=== PATIENT | male | born 1960 | race Caucasian/White ===

== ENCOUNTER 2016-10-31 18:14 | Inpatient (IN) | payer MEDICARE ==
[~2016-10-31] VITALS: Ht 167.6 cm; Wt 75.0 kg
[2016-10-31 18:22] VITALS: BP 181/100; PULSE 93; RESP 20; TEMP 98.5; O2SAT 100
[2016-10-31] MEDS ORDERED: SODIUM CHLOR 0.9% 1000 ML INJ 1,000 ML IV ONE ×2 (18:24→22:15)
--- NOTE | 2016-10-31 18:24 | PD ---
HPI Chief Complaint: Seizure Time Seen by Provider: 18:23 Travel History International Travel<30 days: No Contact w/Intl Traveler<30days: No Traveled to known affect area: No History of Present Illness HPI 56-year-old male with history of alcohol dependency, previous seizures assumed secondary to alcoholism remote CVA, hypertension, hypercholesterolemia, presents to the emergency department for evaluation by [facility]. The patient's brother accompanies him and set the patient has not been acting right today. He states that he had 2 seizures. He states he has been drinking beer for the last 3 days and has not eaten anything. Today he has vomited a few times in addition to the seizures. Patient states that he has not felt well recently but cannot specify a time frame or why he does not feel well. He denies pain. He has not been recently ill with fevers or chills. Denies illicit drug use. Has no other symptoms to report. PFSH Past Medical History Hypertension: Yes Social History Alcohol Use: Yes Tobacco Use: Yes Substance Use: No Allergies-Medications (Allergen,Severity, Reaction): Coded Allergies: No Known Allergies (Unverified , 10/31/16) Reported Meds & Prescriptions Reported Meds & Active Scripts Active Reported Aspir-81 (Aspirin) 81 Mg Tabdr Losartan (Losartan Potassium) 25 Mg Tab 12.5 Mg PO DAILY Review of Systems ROS Limitations: Intoxication Except as stated in HPI: all other systems reviewed are Neg Physical Exam Exam Limitations: Intoxication Narrative GENERAL: Unkempt male patient, lying in bed, in no acute distress SKIN: Warm and dry. HEAD: Atraumatic. Normocephalic. EYES: Pupils equal and round. No scleral icterus. No injection or drainage. ENT: No nasal bleeding or discharge. Mucous membranes pink and moist. NECK: Trachea midline. No JVD. CARDIOVASCULAR: Elevated rate and rhythm. No murmur appreciated. RESPIRATORY: No accessory muscle use. Coarse with inspiratory and expiratory wheeze to auscultation. Breath sounds equal bilaterally. GASTROINTESTINAL: Abdomen soft, non-tender, nondistended. Hepatic and splenic margins not palpable. MUSCULOSKELETAL: No obvious deformities. No clubbing. No cyanosis. No edema. NEUROLOGICAL: Awake and alert. Patient is oriented to time place and self. He has slowed slightly slurred speech. PSYCHIATRIC: Flat affect, bizarre mood. Data Data Last Documented VS Vital Signs Date Time Temp Pulse Resp B/P Pulse Ox O2 Delivery O2 Flow Rate FiO2 10/31/16 19:42 91 18 162/93 100 Room Air 10/31/16 18:22 98.5 Orders Electrocardiogram (10/31/16 18:24) Complete Blood Count With Diff (10/31/16 18:24) Comprehensive Metabolic Panel (10/31/16 18:24) Ckmb (Isoenzyme) Profile (10/31/16 18:24) Troponin I (10/31/16 18:24) Act Partial Throm Time (Ptt) (10/31/16 18:24) Prothrombin Time / Inr (Pt) (10/31/16 18:24) Urinalysis - C+S If Indicated (10/31/16 18:24) Chest, Single Ap (10/31/16 18:24) Ct Brain W/O Iv Contrast(Rout) (10/31/16 18:24) Ecg Monitoring (10/31/16 18:24) Iv Access Insert/Monitor (10/31/16 18:24) Oximetry (10/31/16 18:24) Ondansetron Inj (Zofran Inj) (10/31/16 18:30) Sodium Chloride 0.9% Flush (Ns Flush) (10/31/16 18:30) Sodium Chlor 0.9% 1000 Ml Inj (Ns 1000 M (10/31/16 18:24) Alcohol (Ethanol) (10/31/16 18:24) Albuterol-Ipratropium Neb (Duoneb Neb) (10/31/16 19:30) CKMB (10/31/16 18:30) CKMB% (10/31/16 18:30) Labs Laboratory Tests Test 10/31/16 18:30 White Blood Count 5.6 TH/MM3 Red Blood Count 3.70 MIL/MM3 Hemoglobin 12.3 GM/DL Hematocrit 34.8 % Mean Corpuscular Volume 94.1 FL Mean Corpuscular Hemoglobin 33.3 PG Mean Corpuscular Hemoglobin 35.4 % Concent Red Cell Distribution Width 13.7 % Platelet Count 177 TH/MM3 Mean Platelet Volume 7.1 FL Neutrophils (%) (Auto) 69.9 % Lymphocytes (%) (Auto) 14.5 % Monocytes (%) (Auto) 14.4 % Eosinophils (%) (Auto) 0.3 % Basophils (%) (Auto) 0.9 % Neutrophils # (Auto) 3.9 TH/MM3 Lymphocytes # (Auto) 0.8 TH/MM3 Monocytes # (Auto) 0.8 TH/MM3 Eosinophils # (Auto) 0.0 TH/MM3 Basophils # (Auto) 0.0 TH/MM3 CBC Comment DIFF FINAL Differential Comment Prothrombin Time 10.8 SEC Prothromb Time International 1.0 RATIO Ratio Activated Partial 33.3 SEC Thromboplast Time Urine Color LIGHT-YELLOW Urine Turbidity CLEAR Urine pH 7.0 Urine Specific [place] 1.003 Urine Protein NEG mg/dL Urine Glucose (UA) NEG mg/dL Urine Ketones NEG mg/dL Urine Occult Blood LARGE Urine Nitrite NEG Urine Bilirubin NEG Urine Urobilinogen LESS THAN 2.0 MG/DL Urine Leukocyte Esterase NEG Urine RBC 1 /hpf Urine WBC 1 /hpf Microscopic Urinalysis Comment CULT NOT INDICATED Sodium Level 116 MEQ/L Potassium Level 3.2 MEQ/L Chloride Level 78 MEQ/L Carbon Dioxide Level 24.0 MEQ/L Anion Gap 14 MEQ/L Blood Urea Nitrogen 8 MG/DL Creatinine 1.05 MG/DL Estimat Glomerular Filtration 73 ML/MIN Rate Random Glucose 120 MG/DL Calcium Level 8.9 MG/DL Total Bilirubin 0.5 MG/DL Aspartate Amino Transf 50 U/L (AST/SGOT) Alanine Aminotransferase 73 U/L (ALT/SGPT) Alkaline Phosphatase 60 U/L Total Creatine Kinase 145 U/L Creatine Kinase MB 3.3 NG/ML Troponin I 0.02 NG/ML Total Protein 8.0 GM/DL Albumin 4.2 GM/DL Ethyl Alcohol Level 190 MG/DL [facility] Medical Decision Making Medical Screen Exam Complete: Yes Emergency Medical Condition: Yes Medical Record Reviewed: Yes Differential Diagnosis Seizure disorder versus substance abuse versus intoxication versus electrolyte abnormality versus TIA versus CVA Narrative Course 56-year-old male presents to the emergency department for evaluation. Patient appears with a bizarre affect and states he does not feel well. Neuro exam is otherwise nonfocal. Patient is hypertensive with a slightly elevated heart rate. CBC is without acute concern. CMP is a hyponatremia of 116, hypokalemia 3.2. Urinalysis is with large occult blood. EtOH is 190. I discussed the patient with Dr. Sofia, billet worker mgmt consultant. She states that if patient is stable and medicine is willing to admit that would be fine otherwise she would be happy to admit. I discussed the patient with Dr. Galvez, resident physician mgmt consultant. Patient will be admitted to the resident service. And placed in the critical care unit. Diagnosis Primary Impression: Hyponatremia Additional Impressions: Alcohol intoxication Qualified Code: F10.121 - Alcohol intoxication, with delirium Alcohol dependence Qualified Code: F10.221 - Alcohol dependence with intoxication delirium Seizure Hypertension Qualified Code: I10 - Essential hypertension Admitting Information Admitting Physician Requests: Admit Condition: Stable Griselda Hernandez Oct 31, 2016 18:23
[2016-10-31 18:26] VITALS: O2SAT 100
[2016-10-31] MEDS ORDERED: ONDANSETRON HCL 4 MG/2 ML VIAL IVP ONE (18:30)
[2016-10-31] MEDS ORDERED: LOSA25TA PO (18:30)
[2016-10-31] MEDS ORDERED: SODIUM CHLORIDE 0.9% FLUSH 5 ML FLUSH IVF PRN (18:30)
[2016-10-31] MEDS ORDERED: ASPI81TA81 (18:30)
--- NOTE | 2016-10-31 18:46 | RADRPT ---
EXAM DATE/TIME: 10/31/2016 18:34 [facility] COMPARISON: No previous studies available for comparison. INDICATIONS : Two seizures today. RADIATION DOSE: 56.35 CTDIvol (mGy) MEDICAL HISTORY : None SURGICAL HISTORY : None. ENCOUNTER: Initial ACUITY: 1 day PAIN SCALE: 0/10 LOCATION: cranial TECHNIQUE: Multiple contiguous axial images were obtained of the head. Using automated exposure control and adj ustment of the mA and/or kV according to patient size, radiation dose was kept as low as reasonably a chievable to obtain optimal diagnostic quality images. FINDINGS: CEREBRUM: Atrophy. Encephalomalacia involving the left occipital lobe. The ventricles are normal for age. No e vidence of midline shift, mass lesion, hemorrhage or acute infarction. No extra-axial fluid collecti ons are seen. POSTERIOR FOSSA: The cerebellum and brainstem are intact. The 4th ventricle is midline. The cerebellopontine angle i s unremarkable. EXTRACRANIAL: The visualized portion of the orbits is intact. SKULL: The calvaria is intact. No evidence of skull fracture. CONCLUSION: 1. No acute intracranial abnormality. 2. 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 3. Atrophy. Jesus Navas Jr., MD on October 31, 2016 at 18:43 Board Certified Radiologist. This report was verified electronically.
[2016-10-31 18:50] LABS: AUTOMATED NEUTROPHIL # 3.9 TH/MM3 (1.8-7.7); BASOPHIL % 0.9 % (0.0-2.0); EOSINOPHIL % 0.3 % (0.0-4.0); HEMATOCRIT 34.8 % (39.0-51.0); HEMO FLAGS DIFF FINAL; LYMPH % 14.5 % (9.0-44.0); LYMPHOCYTE # 0.8 TH/MM3 (1.0-4.8); MEAN CELL VOLUME 94.1 FL (80.0-100.0); MEAN CORPUSCULAR HEMOGLOBIN 33.3 PG (27.0-34.0); MEAN CORPUSCULAR HGB CONC 35.4 % (32.0-36.0); MONO % 14.4 % (0.0-8.0); NEUT % 69.9 % (16.0-70.0); PLATELET COUNT 177 TH/MM3 (150-450); RED CELL DISTRIBUTION WIDTH 13.7 % (11.6-17.2); WHITE BLOOD COUNT 5.6 TH/MM3 (4.0-11.0)
--- NOTE | 2016-10-31 18:54 | RADRPT ---
EXAM DATE/TIME: 10/31/2016 18:40 [facility] COMPARISON: No previous studies available for comparison. INDICATIONS : Syncopal episode today. Possible seizure. MEDICAL HISTORY : Seizures. SURGICAL HISTORY : None. ENCOUNTER: Initial ACUITY: 1 day PAIN SCORE: 0/10 LOCATION: Bilateral chest FINDINGS: A single view of the chest demonstrates the lungs to be symmetrically aerated without evidence of mas s, infiltrate or effusion. The cardiomediastinal contours are unremarkable. Osseous structures are intact. CONCLUSION: No acute cardiopulmonary disease demonstrated. New Mazariegos MD on October 31, 2016 at 18:52 Board Certified Radiologist. This report was verified electronically.
[2016-10-31 18:55] LABS: BLOOD, URINE LARGE (NEG); COMMENT (UR) CULT NOT INDICATED; CULTURE IF INDICATED CULT NOT INDICATED; GLUCOSE,URINE NEG (NEG); KETONE, URINE NEG (NEG); NITRITE,URINE NEG (NEG); URINE COLOR LIGHT-YELLOW (YELLW/STRAW)
[2016-10-31 18:59] LABS: APTT (PATIENT) 33.3 SEC (24.3-30.1); PROTHROMBIN TIME - PATIENT 10.8 SEC (9.8-11.6)
[2016-10-31 19:11] LABS: ANION GAP 14 MEQ/L (5-15); AST (GOT) 50 U/L (15-37); BLOOD UREA NITROGEN 8 MG/DL (7-18); CHLORIDE 78 MEQ/L (98-107); GLOMERULAR FILTRATION RATE 73 ML/MIN (>89); POTASSIUM 3.2 MEQ/L (3.5-5.1)
[2016-10-31 19:14] LABS: SODIUM (NA) 116 MEQ/L (136-145)
[2016-10-31 19:23] LABS: ALKALINE PHOSPHATASE 60 U/L (45-117); ALT (GPT) 73 U/L (12-78); CREATINE KINASE 145 U/L (39-308); TOTAL BILIRUBIN ADULT 0.5 MG/DL (0.2-1.0)
[2016-10-31] MEDS ORDERED: RESP: ALBUTEROL 2.5 MG/IPRATROPIUM 0.5 MG NEB (SCH) NEB ONE (19:30)
[2016-10-31 19:39] LABS: CKMB 3.3 NG/ML (0.5-3.6)
[2016-10-31 19:42] VITALS: BP 162/93; PULSE 91; RESP 18; O2SAT 100
[2016-10-31 21:01] VITALS: BP 131/69; PULSE 94; RESP 18; O2SAT 99
[2016-10-31 22:10] VITALS: BP 76/42; PULSE 80; RESP 18; O2SAT 98
[2016-10-31 22:11] VITALS: BP 85/46; PULSE 79; RESP 18; O2SAT 98
--- NOTE | 2016-10-31 23:17 | HHI.HP ---
[facility] Service Family Medicine Primary Care Physician No Primary Care Physician Admission Diagnosis hyponatremia; seizures; alcohol dependency Diagnoses: Chief Complaint: Fall at home International Travel<30 Days: No Contact w/Intl Traveler<30days: No Known Affected Area: No History of Present Illness 56 year old male brought to ED via [facility] following a fall at home witnessed by patients brother. Patient states he went to the restroom and fell on the floor. Patient states his brother found him in the restroom and then called an ambulance. Denies any dizziness, lightheadedness, or headaches recently. Patient states he had one episode of emesis earlier today before his fall, nonbloody today however patient states his brother did think his vomitus looked like blood earlier in the week. Endorses increased UOP recently. Last alcoholic drink was 7-8 beers today right before his fall. No alcohol consumption following the fall. Last time patient visited a physician was about 6 months ago. Patients brother is no longer with patient in the ED; phone number is . Patient denied pain before or after the fall. Denies any incontinence. Denies tongue bites surrounding fall. Patient only remembers walking to the restroom before the fall. He is unsure if he tripped on anything or the circumstances surrounding the fall. He does report some confusion upon awakening for a brief period of time. He denies being intoxicated from the alcohol he drank today. Denies any focal weakness. He did eat some fried turkey today. He does not drink much water. Denies fevers or chills. (Leonard Agudelo MD R1) Review of Systems Constitutional: DENIES: Fever, Weight gain, Chills, Dizziness Eyes: DENIES: Blurred vision, Diplopia, Vision loss Respiratory: DENIES: Shortness of breath Cardiovascular: DENIES: Chest pain Gastrointestinal: COMPLAINS OF: Vomiting (One episode of emesis today before his fall), DENIES: Abdominal pain, Bloody stools, Constipation, Diarrhea, Nausea Neurologic: DENIES: Headache, Paresthesias (Leonard Agudelo MD R1) Past Family Social History Past Medical History Stroke about 6 years ago now with right eye temporal field deficit 3 seizures, unsure when they occurred HTN Hyponatremia in the past per patient report Past Surgical History Cataract surgery few weeks ago Exploratory surgery central chest Multiple orthopedic procedures Reported Medications Reported Meds & Active Scripts Active Reported Aspir-81 (Aspirin) 81 Mg Tabdr Losartan (Losartan Potassium) 25 Mg Tab 12.5 Mg PO DAILY (Leonard Agudelo MD R1) Allergies: Coded Allergies: No Known Allergies (Unverified , 10/31/16) Family History Father: multiple MIs, from an MA at unknown age Social History Tobacco: 1-1.5 PPD x 35 years Etoh: "too many beers" drinks up to 12-18 beers per day x "many years" Illicit drugs: denies, no history of IV drug use (Leonard Agudelo MD R1) Physical Exam Vital Signs Vital Signs Date Time Temp Pulse Resp B/P Pulse Ox O2 Delivery O2 Flow Rate FiO2 10/31/16 22:11 79 18 85/46 98 10/31/16 22:10 80 18 76/42 98 10/31/16 21:01 94 18 131/69 99 Room Air 10/31/16 19:42 91 18 162/93 100 Room Air 10/31/16 18:26 100 10/31/16 18:22 98.5 93 20 181/100 100 Physical Exam GENERAL: Slightly slowed speech. Sitting comfortably in bed. NEURO: AOx3. weather anchor intact with exception of right eye with temporal visual field deficit. FROM. Strength 5/5 throughout. Gait is normal. No dysdiadochokinesia. Finger to nose testing intact. Negative Romberg's test. SKIN: Warm and dry. No rashes or erythema. HEAD: Normocephalic. Atraumatic. EYES: PERRLA. EOMI. No scleral icterus. No injection or drainage. ENT: No nasal drainage. Moist mucous membranes. No oral ulcers or lesions. No evidence of tongue bite. NECK: Supple, trachea midline. No JVD or lymphadenopathy. No carotid bruits. CARDIOVASCULAR: Regular rate and rhythm without murmurs, rubs, or gallops. Peripheral pulses 2+. RESPIRATORY: Breath sounds clear to auscultation and equal bilaterally, without wheezes, rales, or rhonchi. No accessory muscle use. ABDOMEN: Soft, nontender, nondistended. MUSCULOSKELETAL: No edema, cyanosis, or clubbing. BACK: Nontender without obvious deformity. Laboratory Laboratory Tests Test 10/31/16 18:30 White Blood Count 5.6 Red Blood Count 3.70 Hemoglobin 12.3 Hematocrit 34.8 Mean Corpuscular Volume 94.1 Mean Corpuscular Hemoglobin 33.3 Mean Corpuscular Hemoglobin 35.4 Concent Red Cell Distribution Width 13.7 Platelet Count 177 Mean Platelet Volume 7.1 Neutrophils (%) (Auto) 69.9 Lymphocytes (%) (Auto) 14.5 Monocytes (%) (Auto) 14.4 Eosinophils (%) (Auto) 0.3 Basophils (%) (Auto) 0.9 Neutrophils # (Auto) 3.9 Lymphocytes # (Auto) 0.8 Monocytes # (Auto) 0.8 Eosinophils # (Auto) 0.0 Basophils # (Auto) 0.0 CBC Comment DIFF FINAL Differential Comment Prothrombin Time 10.8 Prothromb Time International 1.0 Ratio Activated Partial 33.3 Thromboplast Time Urine Color LIGHT-YELLOW Urine Turbidity CLEAR Urine pH 7.0 Urine Specific [place] 1.003 Urine Protein NEG Urine Glucose (UA) NEG Urine Ketones NEG Urine Occult Blood LARGE Urine Nitrite NEG Urine Bilirubin NEG Urine Urobilinogen LESS THAN 2.0 Urine Leukocyte Esterase NEG Urine RBC 1 Urine WBC 1 Microscopic Urinalysis Comment CULT NOT INDICATED Sodium Level 116 Potassium Level 3.2 Chloride Level 78 Carbon Dioxide Level 24.0 Anion Gap 14 Blood Urea Nitrogen 8 Creatinine 1.05 Estimat Glomerular Filtration 73 Rate Random Glucose 120 Calcium Level 8.9 Total Bilirubin 0.5 Aspartate Amino Transf 50 (AST/SGOT) Alanine Aminotransferase 73 (ALT/SGPT) Alkaline Phosphatase 60 Total Creatine Kinase 145 Creatine Kinase MB 3.3 Troponin I 0.02 Total Protein 8.0 Albumin 4.2 Ethyl Alcohol Level 190 (Leonard Agudelo MD R1) Result Diagram: 10/31/16182910/31/16 183 Imaging Last [address] 10/31/161823 Signed Impressions: Service Date/Time: Monday, October 31, 2016 18:34 - CONCLUSION: 1. No acute intracranial abnormality. 2. 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 3. Atrophy. Jesus Navas Jr., MD Chest X-Ray 10/31/161823 Signed Impressions: Service Date/Time: Monday, October 31, 2016 18:40 - CONCLUSION: No acute cardiopulmonary disease demonstrated. New Mazariegos MD (Leonard Agudelo MD R1) Septic Shock Reassessment Heart: Regular rate and rhythm Lungs: Clear Skin: Warm, Dry Peripheral Pulses: Bounding Right Radial Bounding Left Radial Bounding Right Posterior Tibial Bounding Left Posterior Tibial (Leonard Agudelo MD R1) Assessment and Plan Assessment and Plan 56 year old male with h/o seizures, hyponatremia, and stroke about 6 years ago brought to ED via [facility] following a fall at home Code Status Full code Discussed Condition With sdw Dr. Lenny Patterson (Leonard Agudelo MD R1) Attending Attestation The patient has been seen and examined. The chart and all resident notes have been reviewed. I agree that inpatient care is appropriate and that a two midnight stay is expected for the reasons documented in the resident history and physical. I have discussed this with the resident and certify the resident s order for inpatient admission. All other systems reviewed and neg except as stated in HPI. (Kacie Patterson MD ) Problem List: (1) Hyponatremia Status: Acute Plan: Na on admission 116 - Received 2L NS bolus in ED; repeat Na 130 - Continue with NS @ maintenance rate - Follow up urine 24h electrolytes, serum and urine osmolality (2) Fall Status: Acute Plan: Etiology may be seizure due to hyponatremia vs alcohol intoxication vs carotid stenosis vs orthostatic hypotension from dehydration leading to fall vs mechanical fall - Plan for hyponatremia as above - [facility] protocol - Ativan prn seizures - EEG - Will obtain carotid artery ultrasound - Maintenance IVF - PT (3) Hypokalemia Status: Acute Plan: K+ on admission 3.2; Mg 1.8 - Ordered 50mEq KCl po; repeat K+ 3.8 - EKG shows sinus rhythm, AK interval of about 0.20 seconds, LAD - Continue to monitor and replete if necessary (4) Hypotension Status: Acute Plan: Hold home losartan Maintenance IVF BP stable at this time 137/84 Continue to monitor vitals q4h (5) History of seizures Status: Chronic Plan: Ativan prn seizures Obtain EEG (6) Alcohol dependence Status: Chronic Plan: Etoh level 190 on admission [facility] protocol MV, thiamine, FA (7) Nutrition, metabolism, and development symptoms Status: Acute Plan: NS at maintenance rate Continue to trend electrolytes and replete if necessary Regular diet Lovenox 40 mg sq q24h (Leonard Agudelo MD R1) Physician Certification 2 Midnight Certification Type: Admission for Inpatient Services Order for Inpatient Services The services are ordered in accordance with Medicare regulations or non- Medicare payer requirements, as applicable. In the case of services not specified as inpatient-only, they are appropriately provided as inpatient services in accordance with the 2-midnight benchmark. Estimated LOS (days): 2 days is the estimated time the patient will need to remain in the hospital, assuming treatment plan goals are met and no additional complications. Post-Hospital Plan: Home (Leonard Agudelo MD R1) Problem Qualifiers (1) Alcohol dependence: Qualified Code: F10.221 - Alcohol dependence with intoxication delirium Leonard Agudelo MD R1 Oct 31, 2016 23:17 Kacie Patterson MD Nov 01, 2016 12:51
[2016-11-01] VITALS (10 sets, daily range): BP systolic 119–168; BP diastolic 78–102; PULSE 75–94; RESP 16–20; TEMP 97.6–98.4; O2SAT 96–100
[2016-11-01] MEDS ORDERED: SODIUM CHLOR 0.9% 1000 ML INJ 1,000 ML IV SCH (00:46)
[2016-11-01] MEDS ORDERED: SODIUM CHLORIDE 0.9% FLUSH 5 ML FLUSH FLUSH PRN (01:00)
[2016-11-01] MEDS ORDERED: NALOXONE HCL 0.4 MG/ML AMP IV PRN (01:00)
[2016-11-01] MEDS ORDERED: LORazepam 1 MG TAB PO PRN (01:00)
[2016-11-01] MEDS ORDERED: LORazepam 2 MG/ML VIAL IV PUSH PRN ×5 (01:00→01:15)
[2016-11-01] MEDS ORDERED: POTASSIUM CHLORIDE 10 MEQ CONTROLLED RELEASE TAB PO ONE (01:00)
[2016-11-01] MEDS ORDERED: LORazepam 2 MG TAB PO PRN (01:00)
[2016-11-01] MEDS ORDERED: ACETAMINOPHEN 325 MG TAB PO PRN (01:00)
[2016-11-01] MEDS ORDERED: FLUMAZENIL 1 MG/10 ML VIAL IV PUSH PRN (01:00)
[2016-11-01] MEDS ORDERED: ONDANSETRON HCL 4 MG/2 ML VIAL IV PRN (01:00)
[2016-11-01] MEDS: SODIUM CHLORIDE 0.9% FLUSH 5 ML FLUSH FLUSH SCH ×3 (01:18→21:11)
[2016-11-01 01:32] LABS: AMPHETAMINE, URINE NEG (NEG); BARBITURATES, URINE NEG (NEG); COCAINE, URINE NEG (NEG)
[2016-11-01 01:52] LABS: BLOOD GAS VENOUS BASE EXCESS -0.2 mmol/L (-2-2); BLOOD GAS VENOUS HCO3 24 mmol/L (22-26); BLOOD GAS VENOUS O2 CONTENT 14.4 Vol % (9.0-17.0); BLOOD GAS VENOUS O2 HGB SAT 87 % (70-76); BLOOD GAS VENOUS PCO2 36 mmHg (44-48); BLOOD GAS VENOUS PO2 62 mmHg (35-40); BLOOD GAS VENOUS pH 7.43 (7.360-7.400); CRITICAL VALUE NO; STAT NO; TEMP CORR TO 98.6
[2016-11-01 02:02] LABS: BICARBONATE 22.1 MEQ/L (21.0-32.0)
[2016-11-01 02:05] LABS: POTASSIUM 2.9 MEQ/L (3.5-5.1)
[2016-11-01 04:17] LABS: AUTOMATED NEUTROPHIL # 2.4 TH/MM3 (1.8-7.7); BASOPHIL % 0.5 % (0.0-2.0); EOSINOPHIL % 0.6 % (0.0-4.0); HEMATOCRIT 32.2 % (39.0-51.0); HEMO FLAGS DIFF FINAL; LYMPH % 19.6 % (9.0-44.0); LYMPHOCYTE # 0.7 TH/MM3 (1.0-4.8); MEAN CELL VOLUME 93.6 FL (80.0-100.0); MEAN CORPUSCULAR HEMOGLOBIN 32.5 PG (27.0-34.0); MEAN CORPUSCULAR HGB CONC 34.7 % (32.0-36.0); NEUT % 62.3 % (16.0-70.0); PLATELET COUNT 153 TH/MM3 (150-450); RED BLOOD COUNT 3.44 MIL/MM3 (4.50-5.90); RED CELL DISTRIBUTION WIDTH 13.4 % (11.6-17.2); WHITE BLOOD COUNT 3.8 TH/MM3 (4.0-11.0)
[2016-11-01 04:22] LABS: ALKALINE PHOSPHATASE 48 U/L (45-117); ALT (GPT) 61 U/L (12-78); ANION GAP 9 MEQ/L (5-15); AST (GOT) 41 U/L (15-37); BICARBONATE 25.9 MEQ/L (21.0-32.0); BLOOD UREA NITROGEN 7 MG/DL (7-18); CHLORIDE 94 MEQ/L (98-107); GLOMERULAR FILTRATION RATE 86 ML/MIN (>89); POTASSIUM 3.8 MEQ/L (3.5-5.1); SODIUM (NA) 129 MEQ/L (136-145); TOTAL BILIRUBIN ADULT 0.5 MG/DL (0.2-1.0)
--- NOTE | 2016-11-01 09:29 | HHI.FPPN ---
Subjective Subjective Patient seen and examined with the resident team. Case reviewed and discussed Please refer to resident H&P for further details regarding HPI, ROS, PMH, SurgHx , FH and SocHx. In summary, patient is a 56yoM with a history of chronic alcohol dependence, CVA presenting after a fall at home with possible seizure. Episode witnessed by patient's brother, some confusion noted after. Labs notable in the ED for Na 116. [facility] Objective Objective Last Impressions Head CT 10/31/161823 Signed Impressions: Service Date/Time: Monday, October 31, 2016 18:34 - CONCLUSION: 1. No acute intracranial abnormality. 2. 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 3. Atrophy. Jesus Navas Jr., MD Chest X-Ray 10/31/161823 Signed Impressions: Service Date/Time: Monday, October 31, 2016 18:40 - CONCLUSION: No acute cardiopulmonary disease demonstrated. New Mazariegos MD Laboratory Tests - Abnormals Test 10/31/16 11/01/16 11/01/16 11/01/16 18:30 01:20 01:45 03:35 Red Blood Count 3.70 MIL/MM3 3.44 MIL/MM3 Hemoglobin 12.3 GM/DL 11.2 GM/DL Hematocrit 34.8 % 32.2 % Monocytes (%) (Auto) 14.4 % 17.0 % Lymphocytes # (Auto) 0.8 TH/MM3 0.7 TH/MM3 Activated Partial 33.3 SEC Thromboplast Time Urine Occult Blood LARGE Sodium Level 116 MEQ/L 130 MEQ/L 129 MEQ/L Potassium Level 3.2 MEQ/L 2.9 MEQ/L Chloride Level 78 MEQ/L 95 MEQ/L 94 MEQ/L Estimat Glomerular Filtration 73 ML/MIN 86 ML/MIN Rate Random Glucose 120 MG/DL Aspartate Amino Transf 50 U/L 41 U/L (AST/SGOT) Ethyl Alcohol Level 190 MG/DL Urine Osmolality 187 MOSM/KG Calcium Level 7.8 MG/DL Venous Blood pH 7.43 Venous Blood Partial Pressure 36 mmHg CO2 Venous Blood Partial Pressure 62 mmHg O2 Venous Blood Oxygen Saturation 87 % White Blood Count 3.8 TH/MM3 Vital Signs 10/31/16 10/31/16 10/31/16 10/31/16 18:22 18:26 19:42 21:01 Temp 98.5 Pulse 93 91 94 Resp 20 18 18 B/P 181/100 162/93 131/69 Pulse Ox 100 100 100 99 O2 Delivery Room Air Room Air 10/31/16 10/31/16 11/01/16 11/01/16 22:10 22:11 01:18 05:08 Pulse 80 79 78 79 Resp 18 18 B/P 76/42 85/46 119/78 137/84 Pulse Ox 98 98 96 99 O2 Delivery Room Air Room Air 11/01/16 05:09 Pulse Ox 99 O2 Delivery Room Air INTAKE & OUTPUT 11/01/16 07:00 Output Total 1400 ml Balance -1400 ml Physical exam GENERAL: wdwn male, resting in bed, NAD SKIN: Warm and dry. L medial knee with ecchymoses s/p fall/seizure at home prior to admission HEAD: Normocephalic. AT EYES: No scleral icterus. No injection or drainage. ENT: Op clear. MM slightly dry. No buccal mucosal damage, tongue biting NECK: Supple, trachea midline. No JVD or lymphadenopathy. CARDIOVASCULAR: Regular rate and rhythm without audible murmurs, gallops, or rubs. RESPIRATORY: Breath sounds equal and clear to auscultation bilaterally. No accessory muscle use. GASTROINTESTINAL: Abdomen soft, non-tender, nondistended. No rebound. Normoactive BS MUSCULOSKELETAL: No cyanosis, or edema. Skin as noted above BACK: Nontender without obvious deformity. No CVA tenderness. NEURO: Awake and alert. normal speech. Cn grossly intact. Mild tremulousness. Assessment Assessment 56yoM admitted with: Critical Na, 116 Possible seizure Alcohol dependence Hx CVA Severe hypokalemia Alcohol intoxication HTN Possible carotid stenosis PLAN PLAN NS Trend BMP Replete electrolytes as needed Urine and serum osmolality Urine electrolytes PT consult EEG Carotid ultrasound 2D echo CIWA protocol Counseled on abstaining from alcohol Patient seen and examined with the resident team. Case reviewed and discussed Agree with plan of care as discussed with me and documented in the resident note. Kacie Patterson MD Nov 01, 2016 09:29
[2016-11-01] MEDS: FOLIC ACID 1 MG TAB PO SCH (11:31)
[2016-11-01] MEDS: ENOXAPARIN SODIUM 40 MG/0.4 ML SYRINGE SQ SCH (11:34)
[2016-11-01 11:49] LABS: BICARBONATE 25.3 MEQ/L (21.0-32.0); POTASSIUM 4.2 MEQ/L (3.5-5.1)
[2016-11-01 13:07] LABS: BLOOD GAS VENOUS BASE EXCESS -0.9 mmol/L (-2-2); BLOOD GAS VENOUS HCO3 23 mmol/L (22-26); BLOOD GAS VENOUS O2 CONTENT 12.9 Vol % (9.0-17.0); BLOOD GAS VENOUS O2 HGB SAT 79 % (70-76); BLOOD GAS VENOUS PCO2 37 mmHg (44-48); BLOOD GAS VENOUS PO2 48 mmHg (35-40); BLOOD GAS VENOUS pH 7.41 (7.360-7.400); CRITICAL VALUE NO; TEMP CORR TO 98.6
[2016-11-01 13:08] LABS: DRAW SITE RN; FIO2 21 %; STAT NO
--- NOTE | 2016-11-01 13:13 | EKG ---
Date Performed: 10/31/2016 Time Performed: 18:32:52 PTAGE: 56 years EKG: Sinus rhythm WITH FIRST DEGREE AV BLOCK POSSIBLE LEFT ATRIAL ENLARGEMENT BORDERLINE LEFT AXIS DEVIATION LOW QRS V OLTAGE IN PRECORDIAL LEADS INCOMPLETE RIGHT BUNDLE BRANCH BLOCK NONSPECIFIC T-WAVE ABNORMALITY ABNORM AL ECG NO PREVIOUS TRACING DOCTOR: Aleida Owens Interpretating Date/Time 11/01/2016 13:10:05
[2016-11-01] MEDS: THIAMINE HCL 100 MG TAB PO SCH (16:58)
[2016-11-01] MEDS: MULTIVITAMINS/MINERALS THERAPEUTIC TAB PO SCH (16:59)
[2016-11-01] MEDS: LACTULOSE SYRUP 20 GM/30 ML CUP PO SCH (17:26)
--- NOTE | 2016-11-01 18:02 | RADRPT ---
EXAM DATE/TIME: 11/01/2016 15:43 [facility] COMPARISON: No previous studies available for comparison. INDICATIONS : Syncope. MEDICAL HISTORY : Hypertension. Hypercholesterolemia. ETOH. Seizure. CVA. SURGICAL HISTORY : Orthopaedic surgeries. ENCOUNTER: Initial ACUITY: 1 day PAIN SCORE: 0/10 LOCATION: Bilateral neck PEAK SYSTOLIC VELOCITIES (cm/sec): ICA/CCA RATIO: Right: 1.0 Left: 0.7 ICA: Right: 79 Left: 82 CCA: Right: 80 Left: 125 ECA: Right: 77 Left: 131 VERTEBRAL: Right: 34 antegrade Left: 42 antegrade Elevated flow velocities and ICA/CCA ratios have been found to correlate with increased degrees of vessel stenosis, calculated as percentage of diameter relative to a normal segment of distal ICA/CCA FINDINGS: RIGHT CAROTID: Trace plaque at the bulb and proximal internal carotid artery. LEFT CAROTID: Mild plaque of the bulb and proximal internal carotid artery. VERTEBRAL ARTERIES: Antegrade flow is seen in both vertebral arteries. MISCELLANEOUS: None. CONCLUSION: Trace right and mild left bifurcation atherosclerosis. No hemodynamically significant narrowing. New Mazariegos MD on November 01, 2016 at 18:00 Board Certified Radiologist. This report was verified electronically.
[2016-11-01 21:00] LABS: BICARBONATE 25.4 MEQ/L (21.0-32.0); POTASSIUM 3.8 MEQ/L (3.5-5.1)
[2016-11-02] VITALS (7 sets, daily range): BP systolic 145–179; BP diastolic 69–102; PULSE 70–85; RESP 17–19; TEMP 96.2–97.9; O2SAT 96–100
[2016-11-02] MEDS ORDERED: cloNIDine HCL 0.1 MG TAB PO PRN (08:00)
[2016-11-02] MEDS: FOLIC ACID 1 MG TAB PO SCH (08:30)
[2016-11-02] MEDS: LACTULOSE SYRUP 20 GM/30 ML CUP PO SCH (08:30)
[2016-11-02] MEDS: THIAMINE HCL 100 MG TAB PO SCH (08:30)
[2016-11-02] MEDS: MULTIVITAMINS/MINERALS THERAPEUTIC TAB PO SCH (08:30)
[2016-11-02] MEDS: ENOXAPARIN SODIUM 40 MG/0.4 ML SYRINGE SQ SCH (08:31)
[2016-11-02] MEDS: SODIUM CHLORIDE 0.9% FLUSH 5 ML FLUSH FLUSH SCH ×2 (08:31→22:17)
[2016-11-02 08:49] LABS: BICARBONATE 27.9 MEQ/L (21.0-32.0); POTASSIUM 3.7 MEQ/L (3.5-5.1)
[2016-11-02] MEDS ORDERED: amLODIPine BESYLATE 5 MG TAB PO SCH (09:00)
[2016-11-02] MEDS ORDERED: amLODIPine BESYLATE 5 MG TAB PO ONE (13:45)
--- NOTE | 2016-11-02 16:58 | HHI.FPPN ---
Subjective Remarks Mr. Richardson was afebrile with mild hypertension overnight; patient reported that he was doing well overall this morning. Patient voided and stooled normally overnight. Patient did not report shortness of breath, dysuria, or other symptoms at this time. Patient reported some concern regarding his family's reaction to his alcoholism. Patient states he is agreeable to inpatient rehabilitation on discharge. Patient requests aid in alcohol cessation. Objective Vitals Vital Signs Date Time Temp Pulse Resp B/P Pulse Ox O2 Delivery O2 Flow Rate FiO2 11/02/16 16:00 96.2 85 19 149/97 100 11/02/16 12:22 97.0 78 17 153/90 99 11/02/16 12:00 70 11/02/16 08:00 97.3 76 18 145/69 96 11/02/16 04:00 97.9 74 18 179/102 99 11/01/16 23:58 97.6 78 16 154/94 98 11/01/16 20:28 98.2 80 16 168/97 98 11/01/16 20:00 88 I/O 11/01/16 11/01/16 11/01/16 11/02/16 11/02/16 11/02/16 06:59 14:59 22:59 06:59 14:59 22:59 Intake Total 720 ml Output Total 1400 ml Balance -1400 ml 720 ml Intake Oral 720 ml Output Urine Total 1400 ml # Voids 1 # Bowel Movements 2 Result Diagram: 11/01/16 0335 11/02/16 0721 Imaging Last Impressions Carotid Artery Ultrasound 11/01/16 0000 Signed Impressions: Service Date/Time: Tuesday, November 01, 2016 15:43 - CONCLUSION: Trace right and mild left bifurcation atherosclerosis. No hemodynamically significant narrowing. New Mazariegos MD Head CT 10/31/161823 Signed Impressions: Service Date/Time: Monday, October 31, 2016 18:34 - CONCLUSION: 1. No acute intracranial abnormality. 2. 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 3. Atrophy. Jesus Navas Jr., MD Chest X-Ray 10/31/161823 Signed Impressions: Service Date/Time: Monday, October 31, 2016 18:40 - CONCLUSION: No acute cardiopulmonary disease demonstrated. New Mazariegos MD Objective Remarks GENERAL: NAD SKIN: Warm and dry. EYES: No scleral icterus. No injection or drainage. CARDIOVASCULAR: Regular rate and rhythm without audible murmurs RESPIRATORY: Breath sounds equal and clear to auscultation bilaterally GASTROINTESTINAL: Abdomen soft, non-tender, nondistended. Normoactive BS MUSCULOSKELETAL: No cyanosis, or edema NEURO: Awake and alert. normal speech. CN grossly intact. Grossly normal motor and sensory function. Patient appeared calm without tremoring; patient did not appear to be actively withdrawing from alcohol A/P Assessment and Plan 56 year old male with h/o seizures, hyponatremia, and stroke about 6 years ago brought to ED via [facility] following a fall at home Problem List: (1) Fall suspected secondary to seizure Status: Acute Plan: - Plan for hyponatremia as above - Ativan prn seizures - Maintenance IVF - PT- no PT recommended - EEG- pending - Carotid artery ultrasound- trace/mild R and L bifurcation atherosclerosis -2D Echo - pending Impression: Highly suspicious for seizure. Patient had post ictal state, history of seizures, hyponatremia, and recent reduced alcohol consumption. Other possibilities include CV disease vs orthostatic hypotension from dehydration leading to fall vs mechanical fall. (2) Alcohol dependence Status: Chronic Plan: -[facility] protocol -MV, thiamine, FA -Planned [facility] discharge -Will consider chemical cessation methods per patient request Impression: Patient with history of 12-18 drinks /day on average. Etoh level 190 on admission (3) Hyponatremia Status: Resolved Plan: -Continue to monitor metabolic panel -No additional IVF needed due to stabilization -Check Urine electrolytes, urine and serum osmolality - Impression: Na on admission 116; subsequently corrected to ~130 following electrolyte replacement (4) Hypertension Status: Acute Plan: Amlodipine 10 mg daily Impression: Patient initially hypotensive; subsequent pressures have been mildly elevated. Patient on home Losartan (5) Hypokalemia Status: Resolved Plan: - Continue to monitor and replete if necessary - Ordered 50mEq KCl po-> repeat K+ 3.8 Impression: K+ on admission 3.2; Mg 1.8. EKG shows sinus rhythm, HI interval of about 0.20 seconds, LAD (6) Hypotension Status: Resolved Plan: Initially held home losartan with Maintenance IVF -Continue to monitor vitals q4h Impression: Hypertension on admission; subsequently corrected. (7) Hyperammonemia Status: Acute Plan: Continue daily lactulose Impression: Ammonia of 34 admission. Suspect hepatic etiology due to alcohol abuse, however INR 1, creatinine normal, T bili normal (8) Nutrition, metabolism, and development symptoms Status: Acute Plan: Fluids: NS at maintenance rate; will discontinue Electrolytes: Continue to trend electrolytes and replete if necessary Diet: Regular diet DVT PPX: Lovenox 40 mg sq q24h Problem Qualifiers (1) Alcohol dependence: Qualified Code: F10.221 - Alcohol dependence with intoxication delirium (2) Hypertension: Qualified Code: I10 - Essential hypertension Alexander Galvez MD R2 Nov 02, 2016 16:58
--- NOTE | 2016-11-02 19:18 | MG ---
cc: SLICK CHARLES Lab No: Date: Age: Sex: M Race: ELECTROENCEPHALOGRAM NUMBER [id number] INTRODUCTION A 56-year-old, old left occipital infarct. Two seizures. Drinking beer, not eating. Lovenox. Thiamine. Depression. Alcohol. Falls. DESCRIPTION A 9 Hz 60 microvolts symmetric posterior rhythm is seen. I do not see any left occipital abnormalities. Apparently he falls asleep and reaches stage II sleep. No epileptiform or seizure activity is noted. There were no hemisphere asymmetries. Photic stimulation was performed without significant posterior driving. Hyperventilation was performed without change in the background. IMPRESSION A normal awake and stage II sleep EEG. No evidence for focal or diffuse abnormality. MD MALISSA Zarate/KK /6:43 PM /7:12 PM
[2016-11-03] VITALS: BP 147/80; PULSE 77; RESP 18; TEMP 96.7; O2SAT 99
[2016-11-03 04:00] VITALS: BP 136/90; PULSE 95; RESP 16; TEMP 97.5; O2SAT 100
[2016-11-03 07:28] LABS: AUTOMATED NEUTROPHIL # 2.7 TH/MM3 (1.8-7.7); BASOPHIL % 0.9 % (0.0-2.0); EOSINOPHIL % 0.8 % (0.0-4.0); HEMATOCRIT 35.6 % (39.0-51.0); HEMO FLAGS DIFF FINAL; LYMPH % 21.4 % (9.0-44.0); LYMPHOCYTE # 0.9 TH/MM3 (1.0-4.8); MEAN CELL VOLUME 95.6 FL (80.0-100.0); MEAN CORPUSCULAR HEMOGLOBIN 32.7 PG (27.0-34.0); MEAN CORPUSCULAR HGB CONC 34.2 % (32.0-36.0); MONO % 14.4 % (0.0-8.0); NEUT % 62.5 % (16.0-70.0); PLATELET COUNT 139 TH/MM3 (150-450); RED BLOOD COUNT 3.72 MIL/MM3 (4.50-5.90); RED CELL DISTRIBUTION WIDTH 13.8 % (11.6-17.2); WHITE BLOOD COUNT 4.3 TH/MM3 (4.0-11.0)
[2016-11-03 07:35] VITALS: PULSE 79
[2016-11-03 07:52] LABS: CHLORIDE - TIMED URINE 75 MEQ/L; POTASSIUM 24 HOUR URINE 20 MEQ/24HR (40-80); POTASSIUM TIMED URINE 19 MEQ/L; SODIUM - TIMED URINE 61 MEQ/L; SODIUM 24 HOUR URINE 66 MEQ/24HR (80-180)
[2016-11-03 07:58] LABS: ALKALINE PHOSPHATASE 54 U/L (45-117); ALT (GPT) 103 U/L (12-78); ANION GAP 7 MEQ/L (5-15); AST (GOT) 63 U/L (15-37); BICARBONATE 30.6 MEQ/L (21.0-32.0); BLOOD UREA NITROGEN 11 MG/DL (7-18); CHLORIDE 94 MEQ/L (98-107); GLOMERULAR FILTRATION RATE 85 ML/MIN (>89); POTASSIUM 3.7 MEQ/L (3.5-5.1); SODIUM (NA) 132 MEQ/L (136-145); TOTAL BILIRUBIN ADULT 0.5 MG/DL (0.2-1.0)
[2016-11-03 08:09] VITALS: BP 155/96; PULSE 71; RESP 18; TEMP 96.8; O2SAT 100
[2016-11-03] MEDS: FOLIC ACID 1 MG TAB PO SCH (08:48)
[2016-11-03] MEDS: MULTIVITAMINS/MINERALS THERAPEUTIC TAB PO SCH (08:49)
[2016-11-03] MEDS: ENOXAPARIN SODIUM 40 MG/0.4 ML SYRINGE SQ SCH (08:49)
[2016-11-03] MEDS: LACTULOSE SYRUP 20 GM/30 ML CUP PO SCH (08:49)
[2016-11-03] MEDS: THIAMINE HCL 100 MG TAB PO SCH (08:49)
[2016-11-03] MEDS: SODIUM CHLORIDE 0.9% FLUSH 5 ML FLUSH FLUSH SCH (08:49)
[2016-11-03] MEDS ORDERED: amLODIPine BESYLATE 5 MG TAB PO SCH (09:00)
--- NOTE | 2016-11-03 12:05 | HHI.FPPN ---
Subjective Remarks No acute events overnight. AF, BP 150s/90s. Feeling well and wants to go home so he can shower and sleep better without people waking him up to check on him. (Taran Echeverria MD R1) Objective Vitals Vital Signs Date Time Temp Pulse Resp B/P Pulse Ox O2 Delivery O2 Flow Rate FiO2 11/03/16 08:09 96.8 71 18 155/96 100 11/03/16 07:35 79 11/03/16 04:00 97.5 95 16 136/90 100 11/03/16 00:00 96.7 77 18 147/80 99 11/02/16 23:00 83 11/02/16 20:00 97.3 81 18 153/82 100 11/02/16 16:00 96.2 85 19 149/97 100 11/02/16 12:22 97.0 78 17 153/90 99 11/02/16 12:00 70 I/O 11/02/16 11/02/16 11/02/16 11/03/16 11/03/16 11/03/16 07:00 15:00 23:00 07:00 15:00 23:00 Intake Total 720 ml 480 ml 50 ml Balance 720 ml 480 ml 50 ml Intake Oral 720 ml 480 ml 50 ml # Voids 1 4 # Bowel Movements 2 0 0 (Taran Echeverria MD R1) Result Diagram: 11/03/16 0618 11/03/16 0618 Other Results EEG - normal examination Imaging Last Impressions Carotid Artery Ultrasound 11/01/16 0000 Signed Impressions: Service Date/Time: Tuesday, November 01, 2016 15:43 - CONCLUSION: Trace right and mild left bifurcation atherosclerosis. No hemodynamically significant narrowing. Nwe Mazariegos MD Head CT 10/31/161823 Signed Impressions: Service Date/Time: Monday, October 31, 2016 18:34 - CONCLUSION: 1. No acute intracranial abnormality. 2. 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 3. Atrophy. Jesus Navas Jr., MD Chest X-Ray 10/31/161823 Signed Impressions: Service Date/Time: Monday, October 31, 2016 18:40 - CONCLUSION: No acute cardiopulmonary disease demonstrated. New Mazariegos MD Objective Remarks GENERAL: NAD SKIN: Warm and dry. EYES: No scleral icterus. No injection or drainage. CARDIOVASCULAR: Regular rate and rhythm without audible murmurs RESPIRATORY: Breath sounds equal and clear to auscultation bilaterally GASTROINTESTINAL: Abdomen soft, non-tender, nondistended. Normoactive BS MUSCULOSKELETAL: No cyanosis, or edema NEURO: Awake and alert. normal speech. CN grossly intact. Grossly normal motor and sensory function. Patient appeared calm without tremoring; patient did not appear to be actively withdrawing from alcohol Medications and IVs Current Medications Medications (Trade) Dose Ordered Sig/Zoila Route Start Time Stop Time Status Last Admin (Tylenol) 650 mg Q4H PRN PO 11/01/16 01:00 (Zofran Inj) 4 mg Q6H PRN IV 11/01/16 01:00 (NS Flush) 2 ml UNSCH PRN FLUSH 11/01/16 01:00 (NS Flush) 2 ml BID FLUSH 11/01/16 01:00 11/03/16 08:49 (Lovenox Inj) 40 mg Q24H SQ 11/01/16 09:00 11/03/16 08:49 (Narcan Inj) 0.4 mg UNSCH PRN IV 11/01/16 01:00 (Ativan) 1 mg Q4H PRN PO 11/01/16 01:00 (Ativan Inj) 1 mg Q4H PRN IV PUSH 11/01/16 01:00 (Ativan) 2 mg Q2H PRN PO 11/01/16 01:00 (Ativan Inj) 2 mg Q2H PRN IV PUSH 11/01/16 01:00 (Ativan Inj) 2 mg Q1H PRN IV PUSH 11/01/16 01:00 (Ativan Inj) 2 mg Q15M PRN IV PUSH 11/01/16 01:00 (Folate) 1 mg DAILY PO 11/01/16 09:00 11/06/16 08:59 11/03/16 08:48 (Vitamin B1) 100 mg DAILY PO 11/01/16 09:00 11/03/16 08:49 (Theragran M Tab) 1 tab DAILY PO 11/01/16 09:00 11/06/16 08:59 11/03/16 08:49 (Ativan Inj) 1 mg Q15M PRN IV PUSH 11/01/16 01:15 (Lactulose Liq) 30 ml DAILY PO 11/01/16 18:00 11/03/16 08:49 (Catapres) 0.1 mg Q6H PRN PO 11/02/16 08:00 (Norvasc) 10 mg DAILY PO 11/03/16 09:00 11/03/16 08:49 (Taran Echeverria MD R1) A/P Assessment and Plan 56 year old male with h/o seizures, hyponatremia, and stroke about 6 years ago brought to ED via [facility] following a fall at home Discharge Planning Home today with outpatient f/u at [facility] (Taran Echeverria MD R1) Attending Attestation Patient seen and examined. Case reviewed and discussed Agree with plan of care as discussed with me and documented in the resident note. Counseled on abstaining from alcohol. Will call insurance for PCP for follow-up Motivated to stop drinking (Kacie Patterson MD) Problem List: (1) Fall suspected secondary to seizure Status: Acute Plan: Likely from hyponatremia and alcohol intoxication EEG normal Echo performed, read pending Carotid U/S showing no significant stenosis - Plan for hyponatremia as below - Ativan prn seizures - Maintenance IVF (2) Alcohol dependence Status: Chronic Plan: Patient with history of 12-18 drinks /day on average. Etoh level 190 on admission -[facility] protocol -MV, thiamine, FA -Planned [facility] outpatient follow-up on discharge -Will consider chemical cessation methods per patient request (3) Hyponatremia Status: Resolved Plan: Na on admission 116; subsequently corrected to ~130 following electrolyte replacement Likely chronic secondary to alcohol use Urine Na low at 66 Urine K low at 20 Urine osmolarity low -Continue to monitor metabolic panel -No additional IVF needed due to stabilization (4) Hypertension Status: Acute Plan: Patient initially hypotensive; subsequent pressures have been mildly elevated. Patient on home Losartan Amlodipine 10 mg daily (5) Hypokalemia Status: Resolved Plan: Now normalized Monitor and replete PRN (6) Hypotension Status: Resolved Plan: Initially held home losartan with Maintenance IVF -Continue to monitor vitals q4h Impression: Hypertension on admission; subsequently corrected. (7) Hyperammonemia Status: Acute Plan: Ammonia of 34 admission. Suspect hepatic etiology due to alcohol abuse, however INR 1, creatinine normal, T bili normal Continue daily lactulose (8) Nutrition, metabolism, and development symptoms Status: Acute Plan: Fluids: NS at maintenance rate; will discontinue Electrolytes: Continue to trend electrolytes and replete if necessary Diet: Regular diet DVT PPX: Lovenox 40 mg sq q24h (Taran Echeverria MD R1) Problem Qualifiers (1) Alcohol dependence: Qualified Code: F10.221 - Alcohol dependence with intoxication delirium (2) Hypertension: Qualified Code: I10 - Essential hypertension Taran Echeverria MD R1 Nov 03, 2016 12:05 Kacie Patterson MD Nov 03, 2016 15:44
[2016-11-03 12:08] VITALS: BP 156/96; PULSE 78; RESP 18; TEMP 96.7; O2SAT 100
[2016-11-03] MEDS ORDERED: AMLO5 PO (13:39)
--- NOTE | 2016-11-03 13:40 | HHI.DCPOC ---
Discharge Care Plan Diagnosis: (1) Alcohol dependence (2) History of seizures (3) Hypertension Goals to Promote Your Health * To prevent worsening of your condition and complications * To maintain your health at the optimal level Directions to Meet Your Goals Take your medications as prescribed Follow your dietary instruction Follow activity as directed Keep your appointments as scheduled Take your immunizations and boosters as scheduled If your symptoms worsen call your PCP, if no PCP go to Urgent Care Center or Emergency Room Smoking is Dangerous to Your Health. Avoid second hand smoke Call the 24-hour hour crisis hotline for domestic abuse at Taran Echeverria MD R1 Nov 03, 2016 1:40 pm
--- NOTE | 2016-11-03 16:58 | HHI.DS ---
Discharge Summary Admission Date Oct 31, 2016 at 8:34 pm Discharge Date: Nov 03, 2016 Admitting Diagnosis hyponatremia; seizures; alcohol dependency (1) Fall suspected secondary to seizure Diagnosis: Principal Plan: Likely from hyponatremia and alcohol intoxication EEG normal Echo performed, read pending, unlikely by exam and history to be cardiac etiology Carotid U/S showing no significant stenosis - Treat alcohol abuse as below - F/u outpatient (2) Alcohol dependence Diagnosis: Principal Plan: Patient with history of 12-18 drinks /day on average. Etoh level 190 on admission -[facility] protocol -MV, thiamine, FA -Planned [facility] outpatient follow-up on discharge (3) Hyponatremia Diagnosis: Principal Plan: Na on admission 116; subsequently corrected to ~130 following electrolyte replacement Likely chronic secondary to alcohol use Urine Na low at 66 Urine K low at 20 Urine osmolarity low -Repeat BMP in 1 week (4) Hypertension Diagnosis: Secondary Plan: Patient initially hypotensive; subsequent pressures have been mildly elevated. Patient on home Losartan Amlodipine 10 mg daily --DC home losartan --F/U with PCP (needs to establish, he will call his insurance) (5) Hypokalemia Diagnosis: Principal Plan: Now normalized Repeat BMP in 1 week (6) Hyperammonemia Diagnosis: Secondary Plan: Ammonia of 34 admission. Suspect hepatic etiology due to alcohol abuse, however INR 1, creatinine normal, T bili normal Continue daily lactulose (7) Thrombocytopenia Diagnosis: Secondary Plan: Mild, likely related to chronic alcohol use - F/u CBC in 1 week Brief History 56 year old male brought to ED via [facility] following a fall at home witnessed by patients brother. Patient states he went to the restroom and fell on the floor. Patient states his brother found him in the restroom and then called an ambulance. Denies any dizziness, lightheadedness, or headaches recently. Patient states he had one episode of emesis earlier today before his fall, nonbloody today however patient states his brother did think his vomitus looked like blood earlier in the week. Endorses increased UOP recently. Last alcoholic drink was 7-8 beers today right before his fall. No alcohol consumption following the fall. Last time patient visited a physician was about 6 months ago. Patients brother is no longer with patient in the ED; phone number is . Patient denied pain before or after the fall. Denies any incontinence. Denies tongue bites surrounding fall. Patient only remembers walking to the restroom before the fall. He is unsure if he tripped on anything or the circumstances surrounding the fall. He does report some confusion upon awakening for a brief period of time. He denies being intoxicated from the alcohol he drank today. Denies any focal weakness. He did eat some fried turkey today. He does not drink much water. Denies fevers or chills. CBC/BMP: 11/03/16 0618 11/03/16 0618 Significant Findings Laboratory Tests Test 10/31/16 11/01/16 11/01/16 11/01/16 18:30 01:20 01:45 03:35 Red Blood Count 3.70 MIL/MM3 3.44 MIL/MM3 (4.50-5.90) (4.50-5.90) Hemoglobin 12.3 GM/DL 11.2 GM/DL (13.0-17.0) (13.0-17.0) Hematocrit 34.8 % 32.2 % (39.0-51.0) (39.0-51.0) Monocytes (%) (Auto) 14.4 % 17.0 % (0.0-8.0) (0.0-8.0) Lymphocytes # (Auto) 0.8 TH/MM3 0.7 TH/MM3 (1.0-4.8) (1.0-4.8) Activated Partial 33.3 SEC Thromboplast Time (24.3-30.1) Urine Occult Blood LARGE (NEG) Sodium Level 116 MEQ/L 130 MEQ/L 129 MEQ/L (136-145) (136-145) (136-145) Potassium Level 3.2 MEQ/L 2.9 MEQ/L (3.5-5.1) (3.5-5.1) Chloride Level 78 MEQ/L 95 MEQ/L 94 MEQ/L (98-107) (98-107) (98-107) Estimat Glomerular Filtration 73 ML/MIN (>89) 86 ML/MIN (>89) Rate Random Glucose 120 MG/DL (74-106) Aspartate Amino Transf 50 U/L (15-37) 41 U/L (15-37) (AST/SGOT) Ethyl Alcohol Level 190 MG/DL (0-5) Urine Osmolality 187 MOSM/KG (300-1300) Calcium Level 7.8 MG/DL (8.5-10.1) Venous Blood pH 7.43 (7.360-7.400) Venous Blood Partial Pressure 36 mmHg (44-48) CO2 Venous Blood Partial Pressure 62 mmHg (35-40) O2 Venous Blood Oxygen Saturation 87 % (70-76) White Blood Count 3.8 TH/MM3 (4.0-11.0) Test 11/01/16 11/01/16 11/01/16 11/02/16 11:20 13:00 20:03 07:21 Sodium Level 133 MEQ/L 132 MEQ/L 133 MEQ/L (136-145) (136-145) (136-145) Ammonia 34 MCMOL/L (11-32) Venous Blood pH 7.41 (7.360-7.400) Venous Blood Partial Pressure 37 mmHg (44-48) CO2 Venous Blood Partial Pressure 48 mmHg (35-40) O2 Venous Blood Oxygen Saturation 79 % (70-76) Estimat Glomerular Filtration 77 ML/MIN (>89) Rate Random Glucose 121 MG/DL (74-106) Test 11/03/16 11/03/16 01:30 06:18 Urine Sodium 24 Hour 66 MEQ/24HR (80-180) Urine Potassium 24 Hour 20 MEQ/24HR (40-80) Red Blood Count 3.72 MIL/MM3 (4.50-5.90) Hemoglobin 12.2 GM/DL (13.0-17.0) Hematocrit 35.6 % (39.0-51.0) Platelet Count 139 TH/MM3 (150-450) Monocytes (%) (Auto) 14.4 % (0.0-8.0) Lymphocytes # (Auto) 0.9 TH/MM3 (1.0-4.8) Sodium Level 132 MEQ/L (136-145) Chloride Level 94 MEQ/L (98-107) Estimat Glomerular Filtration 85 ML/MIN (>89) Rate Aspartate Amino Transf 63 U/L (15-37) (AST/SGOT) Alanine Aminotransferase 103 U/L (12-78) (ALT/SGPT) PE at Discharge GENERAL: NAD SKIN: Warm and dry. EYES: No scleral icterus. No injection or drainage. CARDIOVASCULAR: Regular rate and rhythm without audible murmurs RESPIRATORY: Breath sounds equal and clear to auscultation bilaterally GASTROINTESTINAL: Abdomen soft, non-tender, nondistended. Normoactive BS MUSCULOSKELETAL: No cyanosis, or edema NEURO: Awake and alert. normal speech. CN grossly intact. Grossly normal motor and sensory function. Patient appeared calm without tremoring; patient did not appear to be actively withdrawing from alcohol Hospital Course Admitted for seizure while intoxicated. Elevated EtOH, severely hyponatremic ( 119 on admission) which coupled with alcohol was likely etiology of seizure. Corrected electrolyte abnormalities, never had withdrawal symptoms. EEG negative for underlying seizure disorder. Echo performed, read pending at time of discharge. Patient is to establish with a PCP based on his insurance recommendations. Medication changes as below for blood pressure management. He is to obtain follow-up CBC and BMP for mild thrombocytopenia and electrolyte abnormalities. Pt Condition on Discharge: Good Discharge Disposition: Discharge Home Discharge Instructions DIET: Follow Instructions for: As Tolerated, No Restrictions Activities you can perform: Regular-No Restrictions Follow up Referrals: PCP Follow-up - 1 Week New Orders: BASIC METABOLIC PROF - 1 Week CBC NO DIFF - 1 Week New Medications: Amlodipine (Norvasc) 5 Mg Tab 10 MG PO DAILY #30 TAB Continued Medications: Aspirin DR (Aspir-81) 81 Mg Tabdr Discontinued Medications: Losartan (Losartan) 25 Mg Tab 12.5 MG PO DAILY Blood Pressure Management #15 Ref 0 TAB Additional Information Results pending for Echo Taran Echeverria MD R1 Nov 03, 2016 4:58 pm
--- NOTE | 2016-11-03 17:53 | EC ---
Study Study Date:11/03/2016 STUDY CONCLUSIONS SUMMARY LEFT VENTRICLE: Systolic function was normal. The estimated ejection fraction was in the range of 55% to 60%. Doppler parameters are consistent with abnormal left ventricular relaxation (grade 1 diastolic dysfunction). If LV function is below 40, please consider prescribing an ACEI or ARB or document rationale for non-use. PROCEDURE DATA STUDY STATUS: Elective. Procedure: Transthoracic echocardiography. Image quality was good. Scanning was performed from the parasternal, apical, and subcostal acoustic windows. Study completion: The patient tolerated the procedure well. Transthoracic echocardiography. M-mode, complete 2D, complete spectral Doppler, and color Doppler. Height: Height: 67in. Weight: Weight: 164.7lb. Body mass index: BMI: 25.8kg/m^2. Body surface area: BSA: 1.86m^2. Patient status: Inpatient. CARDIAC ANATOMY LEFT VENTRICLE: Systolic function was normal. The estimated ejection fraction was in the range of 55% to 60%. Doppler parameters are consistent with abnormal left ventricular relaxation (grade 1 diastolic dysfunction). AORTIC VALVE: The valve appears to be grossly normal. Doppler: There was no stenosis. No significant regurgitation. Valve area: 2.5cm^2 (Vmax). Indexed valve area: 1.34cm^2/m^2 (Vmax). MITRAL VALVE: The valve appears to be grossly normal. Doppler: There was no evidence for stenosis. No significant regurgitation. PULMONIC VALVE: The valve appears to be grossly normal. Doppler: There was no evidence for stenosis. No significant regurgitation. TRICUSPID VALVE: The valve appears to be grossly normal. Doppler: There was no evidence for stenosis. No significant regurgitation. Patient weight: 164.7lb _Ejection fraction:_ 65-75% _Fractional shortening:_ 32% up to 5Kg 5-11.5Kg 11.6-22.9Kg 23-45Kg 45-57Kg Aortic Root 7-13 <17 13-22 17-27 17-27 LA diam 6-13 <23 24-38 33-47 37-40 RVID 10-17 7-15 7-15 7-18 8-17 LVIDd 12-22 <32 24-38 33-47 37-40 LVPW 2-4 3-6 5-7 6-8 7-8 IVS 2-4 3-6 5-7 6-8 7-8 BASIC MEASUREMENTS ADULT NORMAL Left ventricle LV internal dimension, ED, chordal 45 mm 43-52 level, PLAX LV internal dimension, ES, chordal 35.8 mm 23-38 level, PLAX Fractional shortening, chordal level, *20 % >29 PLAX LV posterior wall thickness, ED 9.25 mm IVS/LVPW ratio, ED 1.26 <1.3 Ventricular septum Septal thickness, ED 11.7 mm Aortic valve Leaflet separation 22 mm 15-26 Right ventricle RV internal dimension, ED, PLAX 20.3 mm 19-38 BASIC MEASUREMENTS ADULT NORMAL Aortic valve Leaflet separation 22 mm 15-26 Aorta Root diameter, ED 30 mm 20-37 Left atrium Anterior-posterior dimension, ES 39 mm 19-40 Anterior-posterior dimension index, ES 2.1 cm/m^2 <2.2 LA/aortic root ratio 1.3 DOPPLER MEASUREMENTS ADULT NORMAL Aortic valve Peak velocity, S 155 cm/s Valve area, Vmax 2.5 cm^2 Valve area index, Vmax 1.34 cm^2/m^2 Mitral valve Peak E-wave velocity 66.6 cm/s Peak A-wave velocity 93.8 cm/s Deceleration time 208 ms 150-230 Peak E/A ratio 0.7 Pulmonic valve Peak velocity, S 111 cm/s LEGEND: Mean values are shown as u=mean value. Asterisk (*) reyes values outside specified normal range. Prepared and signed by Frandy Hyatt [id number]
== END 2016-11-03 14:44 | disposition home or self-care (01) | DRG 897 ==
LOC: NEPA 18:14 → NEDA 20:34 → NEDH 11-01 01:33 → N05A 11-01 12:18
PROVIDERS: ADMIT Family Medicine; ATTEND Family Medicine
DX: F10.229 Alcohol dependence with intoxication, unspecified (principal); D69.6 Thrombocytopenia, unspecified; I95.9 Hypotension, unspecified; R56.9 Unspecified convulsions; E72.20 Disorder of urea cycle metabolism, unspecified; E87.1 Hypo-osmolality and hyponatremia; Y90.6 Blood alcohol level of 120-199 mg/100 ml; I10 Essential (primary) hypertension; E87.6 Hypokalemia; W19.XXXA Unspecified fall, initial encounter; Y92.009 Unspecified place in unspecified non-institutional (private) residence as the place of occurrence of the external cause; Z72.0 Tobacco use; Z86.73 Personal history of transient ischemic attack (TIA), and cerebral infarction without residual deficits
CPT/HCPCS: 70450; 71010; 80048; 80053; 80301; 80320; 81001; 82140; 82436; 82550; 82552; 82805; 83605; 83735; 83930; 83935; 84133; 84146; 84300; 84484; 85025; 85610; 85730; 87040; 93005; 93306; 93880; 94664; 95819; 96361; 96374; G0479; J1650; J2405; J7030